=== PATIENT | female | born 1965 | race Caucasian/White ===

== ENCOUNTER 2024-01-15 12:45 | Emergency (ER) | payer OTHER, SELFPAY ==
[2024-01-15 12:47] VITALS: BP 171/89; PULSE 75; RESP 16; TEMP 36.6; O2SAT 100; BMI 39.2
--- NOTE | 2024-01-15 12:51 | ED.RN ---
NO OLD EKGS
--- NOTE | 2024-01-15 13:27 | EKG12_ITS ---
Test Reason : PALPITATIONS Blood Pressure : / mmHG Vent. Rate : 066 BPM Atrial Rate : 066 BPM P-R Int : 168 ms QRS Dur : 086 ms QT Int : 390 ms P-R-T Axes : 019 -11 028 degrees QTc Int : 408 ms Normal sinus rhythm Minimal voltage criteria for LVH, may be normal variant ( R in aVL ) Borderline ECG Confirmed by WALDO HERNANDEZ, ARLET ([id number]), film or videotape editor SLIM TANG ([id number]) on 01/16/2024 9:44:09 AM Referred By: SAKINA/ARISTEO Confirmed By:ARLET HAAS MD
[2024-01-15 13:36] LABS: Absolute Neutrophil Count 7.4 X10^3/uL (2.0-7.7); Basophil# 0.09 X10^3/uL; Basophil% 0.8 % (0-1); Eosinophils% 0.9 % (0-5); Hematocrit 44.8 % (37-47); Hemoglobin 14.4 g/dL (12.0-15.0); Lymphocyte % 24.9 % (19-41); Mean Corp Hgb Conc 32.1 g/dL (32-36); Mean Corpuscular Hgb 29.4 pg (27.0-32.0); Mean Corpuscular Volume 91.6 fL (81-99); Monocyte# 1.16 X10^3/uL; Monocyte% 9.9 % (0-10); NRBC Flagged by Analyzer 0 % (0-5); Neutrophil # 7.37 X10^3/uL (2.7-7.7); Neutrophil % 63.2 % (47-70); Platelet Count 297 K/mm3 (150-450); RBC Distribution Width CV 12.6 % (11.6-14.6); RBC Distribution Width SD 41.9 fl (35.1-43.9); Red Blood Count 4.89 M/mm3 (4.2-5.4); White Blood Count 11.7 K/mm3 (4.4-11.0)
--- NOTE | 2024-01-15 13:36 | EX.ED.DYSGE1 ---
HPI History of Present Illness Chief Complaint: Palpitations Informant: patient Narrative Narrative: Patient is a 58-year-old female with history of GERD and PCOS presenting with palpitations. Patient states 2 weeks ago she had a cough and a cold. She states her symptoms improved on , 4 days ago. On Monday, 3 days ago, she had a 6-month follow-up with her PCP, Dr. Owens. She notes that she reviewed her labs that evening and her only abnormality was her anion gap was low at 8. She started become very concerned that there could be something wrong with her. She start drinking Gatorade. She notes that her pharmacy recently switched the brand of omeprazole and since then she has been having increased heartburn and reflux symptoms. She states that she has been having intermittent pounding in her chest and occasionally she gets flushed especially in her left cheek. Her symptoms will then resolve. She denies any chest pain. She denies any swelling of her legs, history of DVT or PE. Does not have any known history of any heart problems. Denies any shortness of breath. Denies any associated nausea or vomiting. Has had increased rest of her life as she is planning going to [email or web address] tomorrow, for the past year has been dealing with her mother who has behavioral disorder secondary to dementia, lupus and is in a [facility] ever since her father . Currently states she just feels wired but denies any other symptoms at this time. Prior similar symptoms: No PFSH PFSH Allergy/AdvReac Type Severity Reaction Status Date / Time No Known Allergies Allergy Verified 01/15/24 12:46 Social History Smoking Status: Never smoker ROS ROS ED Constitutional Constitutional ED: Denies chills or fever(s) ENT ENT ED: Denies rhinorrhea Cardiovascular Cardiovascular: Reports palpitations; Denies chest pain Respiratory/Chest Respiratory/Chest: Denies cough or dyspnea Gastrointestinal Gastrointestinal: Denies abdominal pain, diarrhea, nausea or vomiting Genitourinary Genitourinary ED: Denies dysuria or hematuria Musculoskeletal Musculoskeletal: Denies arthralgias or myalgias Integumentary Denies rash Neurologic Neurologic: Denies headache(s), paresthesias or weakness Psychiatric Psychiatric: Reports anxiety; Denies depression EXAM Physical Exam Const Vital Signs: 01/15/24 12:47 02/19/24 15:15 01/15/24 15:15 Temperature 97.9 F 97 F L Temperature Source Temporal Pulse Rate 75 78 87 Respiratory Rate 16 17 Blood Pressure 171/89 H 143/80 H 143/80 H Blood Pressure Mean 116 101 101 Pulse Ox 100 100 Positive well nourished and well developed General Appearance ED: well developed and NAD HEENT Reports moist mucous membranes Negative for trauma Eyes PERRL and EOMs intact bilaterally Neck supple and no JVD Chest Wall inspection of chest normal and palpation of chest normal Resp normal respiratory effort and clear to auscultation bilaterally Cardio regular rate, regular rhythm and no murmurs GI normal to inspection, nondistended, normoactive bowel sounds and non-tender Back/Spine no CVA tenderness Extremity normal to inspection General Extremety ED: Negative for edema or tenderness General Extremity: Negative for edema Neuro oriented x3 Sensorium / Orientation: alert Motor Exam: Negative for general weakness Psych mental status grossly normal Skin no rashes or lesions noted and no wounds MDM MDM MDM Narrative Medical decision making narrative: Patient evaluated for palpitations. Appears nontoxic in no acute distress. She not sure if this is an anxiety reaction, her GERD symptoms were serious so she came in for further evaluation. Physical exam is benign. She overall is well-appearing. Blood pressure is mildly elevated. Cardiac workup including high-sensitivity troponin, D-dimer, TSH, urinalysis, CBC and BMP are obtained. She has a very mild leukocytosis 11.7 which is nonspecific. No obvious source of infection on physical exam or laboratory findings. High since he troponin is normal at 4, her TSH is normal at 1.21 and a creatinine is mildly elevated at 1.06. Patient showed me her labs from [facility] which showed that 3 days ago her creatinine was 0.96. Due to think she has an JOSE. Urinalysis consistent with contamination and not consistent with infection. EKG does not show any arrhythmia and she does not have any arrhythmia while in the emergency room. At this time patient does not have findings concerning for pericarditis, myocarditis, thyroid storm, acute infection, acute dehydration or pulmonary emboli. I think she can be discharged home. Exact cause of her palpitations symptoms not clear however I do not see an emergent process. I think it be safe for her to go to [place] to visit her daughter tomorrow she is scheduled. Is given return precautions. Counseled to follow-up with her primary care doctor when she returns next week from [place]. Patient does mention that she is supposed to have an appointment at 3:00 today because of a cracked feeling. I was able to visualize as I do not see any signs of dental infection. She is asymptomatic. She will reschedule with her dentist when she returns to [facility] as well. Do not think she requires any antibiotics at this time. Lab Data Attestation: I reviewed the patient's lab results. Labs: Laboratory Results - last 24 hr 01/15/24 01/15/24 12:55 14:15 WBC 11.7 H RBC 4.89 Hgb 14.4 Hct 44.8 MCV 91.6 MCH 29.4 MCHC 32.1 RDW Std Deviation 41.9 RDW Coeff of Marybel 12.6 Plt Count 297 MPV 11.0 Immature Gran % (Auto) 0.300 Neut % (Auto) 63.2 Lymph % (Auto) 24.9 [place] % (Auto) 9.9 Eos % (Auto) 0.9 Baso % (Auto) 0.8 Absolute Neuts (auto) 7.4 Absolute Lymphs (auto) 2.90 Nucleated RBC % 0 D-Dimer Quant (PE/DVT) 0.37 Sodium 138 Potassium 4.1 Chloride 107 Carbon Dioxide 25.0 Anion Gap 6 BUN 18 Creatinine 1.06 H Estim Creat Clear Calc 83.93 Est GFR (MDRD) Af Amer 69 Est GFR (MDRD) Non-Af 57 L BUN/Creatinine Ratio 17.0 Glucose 101 Calcium 9.6 Magnesium 2.1 Troponin I High Sens 4 TSH 1.21 Urine Color Yellow Urine Clarity Sl Cloudy Urine pH 6.0 Ur Specific [place] 1.015 Urine Protein Negative Urine Glucose (UA) Normal Urine Ketones Negative Urine Occult Blood Negative Urine Nitrite Negative Urine Bilirubin Negative Urine Urobilinogen Normal Ur Leukocyte Esterase Negative Urine RBC 0-5 SEEN Urine WBC 0-5 SEEN Ur Squamous Epith Cells 10-25 SEEN Urine Bacteria 2+ Urine Mucus 2+ Rhythm Strip Rhythm Strip: Sinus Rhythm Rate: 66 Ectopy: None EKG Initial EKG: Attestation: I personally reviewed and interpreted this EKG as follows: Interpretation: Sinus Rhythm Comments: Normal sinus rhythm at a rate of 66 bpm Normal axis Normal intervals Minimal voltage criteria for LVH which may be normal variant Prior EKG tracings: not available for review Prior: No Prior Discharge Plan Triage Chief Complaint: Palpitations ED Provider: Renetta Blanco Dx/Rx/DC Orders Clinical Impression: Heart palpitations Instructions: ED Palpitations Primary Care Provider: Jg Owens Referrals: Jg Owens MD [Primary Care Provider] - Activity Restrictions/Additional Instructions: The cause your symptoms today is not clear however this time does not appear to be in acute cardiac or pulmonary process going on. I feel that it safe for you to follow-up outpatient with your primary care doctor. If you have a progression or worsening symptoms please return to the emergency room. Disposition Disposition: Home, Self Care Discharge Date/Time: 01/15/24 15:18
[2024-01-15 13:48] LABS: D-Dimer Quantitative (DVT/PE) 0.37 FEU/ug/m (0.27-0.49)
[2024-01-15 14:00] LABS: Anion Gap 6 (5-15); BUN 18 mg/dL (7-18); Calcium,Total 9.6 mg/dL (8.5-10.1); Chloride 107 mmol/L (98-107); Creatinine, Serum 1.06 mg/dL (0.55-1.02); EST Glomerular Filtration Rate 57 mL/min (>60); Est Glom Filt Rate - Afr Amer 69 mL/min (>60); Estimated Creatinine Clearance 83.93 ml/min; Glucose 101 mg/dL (74-106); Magnesium 2.1 mg/dL (1.6-2.6); Potassium 4.1 mmol/L (3.5-5.1); Sodium Level 138 mmol/L (136-145); Thyroid Stim Hormone (TSH) 1.21 uIU/mL (0.358-3.74); Troponin-I HS 4 pg/mL (3.0-54.0)
[2024-01-15 14:29] LABS: Glucose, Dipstick Normal (Normal); Ketone-Dipstick Negative (Negative); Leukocyte Esterase-Dipstick Negative /ul (Negative); Nitrite-Dipstick Negative (Negative); Occult Blood-Urine Negative /ul (Negative); Protein-Dipstick Negative (Negative); Specific Gravity, Urine 1.015 (1.002-1.030); Urine Bilirubin Dipstick Negative (Negative); Urine Urobilinogen Normal (Normal)
[2024-01-15 14:36] LABS: Color, Urine Yellow (Yellow); Urine Clarity Sl Cloudy (Clear)
[2024-01-15 14:53] LABS: Mucous, Urine 2+ /hpf (<or=2+)
[2024-01-15 14:54] LABS: Red Blood Cells-Urine 0-5 SEEN /hpf (0-5); White Blood Cells 0-5 SEEN /hpf (0-5)
[2024-01-15 14:55] LABS: Bacteria 2+ /hpf (None Seen); Squamous Epithelial Cells - UA 10-25 SEEN /hpf (5-10)
[2024-01-15 15:15] VITALS: BP 143/80; PULSE 78; PULSE 87; RESP 17; TEMP 36.1; O2SAT 100
== END 2024-01-15 15:18 | disposition home or self-care (01) ==
PROVIDERS: Emergency Provider Emergency Medicine; PCP Family Medicine; Visit Provider Emergency Medicine
DX: R00.2 Palpitations (principal); N17.9 Acute kidney failure, unspecified; M32.9 Systemic lupus erythematosus, unspecified; F03.90 Unspecified dementia, unspecified severity, without behavioral disturbance, psychotic disturbance, mood disturbance, and anxiety; K21.9 Gastro-esophageal reflux disease without esophagitis; F41.9 Anxiety disorder, unspecified
CPT/HCPCS: 80048; 81001; 83735; 84443; 84484; 85025; 85379; 93005; 99284; A4216